=== PATIENT | female | born 1975 | race Caucasian/White ===

== ENCOUNTER 2019-08-07 22:43 | Emergency (ER) | payer OTHER ==
[~2019-08-07] VITALS: Ht 167.6 cm; Wt 97.5 kg
[~2019-08-07 22:43] MED LIST: AMBIEN 10 MG TA10 MG; BUSPAR; CYMBALTA; KEFLEX500 MG PO; NORCO 5-325 TA1 EACH PO; RESTORIL30 MG; WELLBUTRIN SR150 MG; ZANAFLEX4 M1; ZOFRAN 4 MG ORAL4 M1 DIS; [UNRECOGNIZED DRUG - OTHER]
[2019-08-07] MEDS ORDERED: CYMBALTA60 MG (23:06)
[2019-08-07] MEDS ORDERED: NADOLOL (23:06)
[2019-08-07] MEDS ORDERED: ESTRACE1 MG (23:07)
[2019-08-07 23:21] LABS: ABSOLUTE BASOPHILS 0.1 thou/uL (0.0-0.2); ABSOLUTE EOSINOPHILS 0.4 thou/uL (0.0-0.7); ABSOLUTE LYMPHOCYTES 2.9 thou/uL (0.8-5.3); ABSOLUTE MONOCYTES 0.5 thou/uL (0.0-1.2); ABSOLUTE NEUTROPHILS 6.2 thou/uL (1.6-8.1); BASOPHILS 1.2 %; EOSINOPHILS 3.5 %; HEMATOCRIT 39.2 % (37.0-47.0); HEMOGLOBIN 13.1 gm/dL (12.0-15.0); MCHC 33.4 g/dL (28.0-37.0); MCV 95.8 fL (80.0-100.0); MONOCYTES 4.8 %; MPV 8.8 fl. (7.2-11.1); NUCLEATED RBCS 0 /100WBC; PLATELET COUNT* 270 thou/uL (150-400); POLYS 61.5 %; RBC 4.09 mil/uL (4.20-5.00); RDW-CV 13.8 % (10.5-14.5); WBC 10.1 thou/uL (4.0-11.0)
[2019-08-07 23:31] LABS: ANION GAP 7 mmol/L (7-16); BUN 7 mg/dL (7-18); CALCIUM 8.9 mg/dL (8.5-10.1); CHLORIDE 97 mmol/L (98-107); CO2 30 mmol/L (21-32); CREATININE 1.1 mg/dL (0.6-1.3); GLUCOSE 125 mg/dL (70-99); POTASSIUM 3.6 mmol/L (3.5-5.1); SODIUM 134 mmol/L (136-145)
[2019-08-07 23:31] LABS: URINE BILIRUBIN NEGATIVE (Negative); URINE BLOOD NEGATIVE (Negative); URINE CLARITY CLEAR; URINE COLOR YELLOW; URINE GLUCOSE-RANDOM NEGATIVE (Negative); URINE KETONES NEGATIVE (Negative); URINE LEUKOCYTES-REFLEX NEGATIVE (Negative); URINE NITRITE-REFLEX NEGATIVE (Negative); URINE PROTEIN NEGATIVE (Negative); URINE UROBILINOGEN 0.2 E.U./dl (0.2-1.0)
[2019-08-07 23:40] LABS: ALBUMIN 3.1 g/dL (3.4-5.0); ALKALINE PHOSPHATASE 130 U/L (46-116); SGOT 47 U/L (15-37); SGPT 74 U/L (30-65); TOTAL BILIRUBIN 0.2 mg/dL (<0.1-1.0); TOTAL PROTEIN 6.8 g/dL (6.4-8.2); TROPONIN-I LEVEL <0.06 ng/mL (<0.06)
[2019-08-08 01:07] LABS: AMP/METHAMP Negative (Negative); BARBITURATES Negative (Negative); BENZODIAZEPINES Negative (Negative); COCAINE Negative (Negative); METHADONE Negative (Negative); OPIATES Negative (Negative); PCP Negative (Negative); THC Negative (Negative)
[2019-08-08 02:42] VITALS: BP 112/70
--- NOTE | 2019-08-08 15:02 | EKG ---
[place] [address] ELECTROCARDIOGRAM REPORT Name: PARIS CHIANG Room: [facility]#: [id number] Admission: 08/07/19 Attend Phys: Discharge: 08/08/19 Date of : 71 Report #: [id number] THIS REPORT FOR: //name// [facility] ED Test Date: 2019-08-07 Test Time: 23:23:38 Pat Name: PARIS CHIANG Department: Room: Gender: F [employer]: [place] : 1975 Requested By: Cindi Zhou Order Number: [id number] MD: Holland Bowers Measurements Intervals [place] Rate: 65 P: -14 [place]: 135 QRS: 13 QRSD: 95 T: 15 QT: 428 QTc: 445 Interpretive Statements Sinus rhythm Left ventricular hypertrophy, by voltage No previous ECG available for comparison Electronically Signed On 08-08-2019 15:02:13 CDT by Holland Bowers [email or web address] <ELECTRONICALLY SIGNED> By: Holland Bowers MD, [facility] 08/08/19 1502 [id number] Holland Bowers MD, [facility] /EPI
== END 2019-08-08 02:42 | disposition home or self-care (01) ==
LOC: M.ERS 22:43
PROVIDERS: Personal Emergency Response Attendant
DX: R56.9 Unspecified convulsions (principal); Z88.0 Allergy status to penicillin; Z98.890 Other specified postprocedural states; Z90.49 Acquired absence of other specified parts of digestive tract; Z90.710 Acquired absence of both cervix and uterus